=== PATIENT | male | born 1985 | race African-American/Black ===

== ENCOUNTER 2021-01-22 12:34 | Emergency (ER) | payer MEDICAID ==
[~2021-01-22] VITALS: Ht 177.8 cm; Wt 85.0 kg
[2021-01-22] MEDS ORDERED: ONDANSETRON HCL 4MG/2ML INJ IV STA (12:54)
[2021-01-22] MEDS ORDERED: MORPHINE SULFATE 4 MG/ML CPJ (NOT FOR IM USE) IV STA (12:54)
[2021-01-22] MEDS ORDERED: HALOPERIDOL LACTATE 5MG/ML VIAL IM ONE (13:00)
[2021-01-22] MEDS ORDERED: SODIUM CHLORIDE 0.9% 1,000 ML IV ONE ×2 (13:00→19:30)
[2021-01-22] MEDS ORDERED: PANTOPRAZOLE SODIUM 40 MG/VIAL IV ONE (13:00)
[2021-01-22] MEDS ORDERED: MORPHINE SULFATE 2 MG/ML CPJ (NOT FOR IM USE) IV STA (13:35)
[2021-01-22 14:11] LABS: BASOPHILS % 0.5 % (0.0-2.0); EOSINOPHILS % 0.9 % (0.0-5.0); HEMATOCRIT. 43.9 % (42.0-52.0); HEMOGLOBIN. 14.7 g/dL (14.0-18.0); LYMPHOCYTES % 17.2 % (20.0-50.0); MEAN CORPUSCULAR HEMOGLOBIN 29.4 pg (28.0-32.0); MEAN CORPUSCULAR VOLUME 87.6 fL (80.0-94.0); MEAN PLATELET VOLUME 7.8 fl (7.4-10.4); MONOCYTES % 4.4 % (2.0-8.0); PLATELET 263 x1000/uL (130-400); RED BLOOD CELL COUNT 5.02 mill/uL (4.7-6.1); RED CELL DISTRIBUTION WIDTH 13.7 % (11.6-14.6)
[2021-01-22 14:19] LABS: CHLORIDE 111 mEq/L (98-107)
[2021-01-22 14:22] LABS: PROTHROMBIN TIME 10.9 sec (9.6-11.0)
[2021-01-22 19:27] VITALS: BP 130/85
[2021-01-22] MEDS ORDERED: FAMO-135 MT (19:34)
== END 2021-01-22 20:29 | disposition home or self-care (01) ==
LOC: ER 12:44
DX: R11.2 Nausea with vomiting, unspecified (principal); R10.9 Unspecified abdominal pain; R74.8 Abnormal levels of other serum enzymes; F12.10 Cannabis abuse, uncomplicated
CPT/HCPCS: 36415; 74176; 80053; 82962; 83690; 84484; 85025; 85610; 96361; 96372; 96374; 96375; 99285; C9113; J1630; J2270; J7030